=== PATIENT | female | born 1950 | race Caucasian/White ===

== ENCOUNTER 2020-11-01 11:23 | Inpatient (IN) ==
--- NOTE | 2020-11-01 12:19 | ERNOTE ---
Date of Service: 11/01/20 Time Seen by Provider: 11/01/20 12:06 Stated Complaint: covid symptoms Presenting Symptoms:: cough Source: patient Exam Limitations: no limitations Immunizations: IMMUNIZATION HX Immunizations Up to Date Yes History of Influenza Vaccine Yes Hx Pneumococcal Vaccination No Allergies/Adverse Reactions: Allergies Tetanus Vaccines and Toxoid [Tetanus] Allergy (Intermediate, Verified 04/04/20 10:58) SWELLING venlafaxine Allergy (Verified 04/04/20 10:58) moxifloxacin HCl [From Avelox] Adverse Reaction (Mild, Verified 04/04/20 10:58) RASH Home Medications: HOME MEDICATIONS Aspirin [Aspirin Chewable] 81 mg PO BID 03/19/16 [Last Taken 03/21/16] Deng Cit/Mag/D3/Zn/Breakfast Hostess/Jhon/Bor [Citracal-Vit D + Magnesium Tab] 1 ea PO DAILY 03/19/16 [Last Taken Unknown] Cyanocobalamin [Vitamin B-12] 1,000 mcg PO DAILY 03/19/16 [Last Taken Unknown] Flecainide Acetate [Tambocor] 100 mg PO BID 03/19/16 [Last Taken 03/28/16 05:30] Melatonin/Pyridoxine HCl (B6) [Melatonin 1 mg Tablet] 1 ea PO HS 03/19/16 [Last Taken Unknown] Multivit with Calcium,Iron,Min [Women's Daily Formula] 1 ea PO DAILY 03/19/16 [Last Taken Unknown] [place]-3 Fatty Acids [Fish Oil] 300 mg PO DAILY 03/19/16 [Last Taken Unknown] Polyethylene Glycol 3350 [Miralax] 17 gm PO DAILY 03/19/16 [Last Taken Unknown] anastrozole 1 mg tablet 1 mg PO DAILY 05/07/18 [Last Taken Unknown] cinnamon bark 500 mg capsule 2,000 mg PO cap 12/02/18 [Last Taken Unknown] turmeric 400 mg capsule 400 mg PO DAILY cap 12/02/18 [Last Taken Unknown] omeprazole 40 mg capsule,delayed release 40 mg PO DAILY #90 cap 09/26/19 [Last Taken Unknown] metoprolol tartrate 100 mg tablet 100 mg PO BID #60 tab 07/20/20 [Last Taken Unknown] potassium chloride 10 mEq tablet,extended release 10 meq PO DAILY #30 tab 07/25/20 [Last Taken Unknown] hydrochlorothiazide 25 mg tablet See Rx Instructions .ROUTE .COMPLEX #90 tablet 10/31/20 [Last Taken Unknown] - History of Present Ilness Narrative: Patient is a 70-year-old female with a history of hypertension, atrial fibrillation presenting with cough, chills, muscle aches and pains and shortness of breath since 10/24. Her had similar symptoms just before her onset of symptoms. She noted persistent symptoms since then. No fevers. Denies any abdominal pain, nausea, vomiting or diarrhea. She has been taking her temperature daily, but denies any fevers. Review of Systems - Review of Systems Constitutional: Present: fever, chills EYE: Present: no symptoms reported ENT: Present: no symptoms reported Respiratory: Present: shortness of breath, cough Cardiology: Present: no symptoms reported Gastrointestinal/Abdominal: Present: no symptoms reported Genitourinary: Present: no symptoms reported Musculoskeletal: Present: muscle pain, joint pain Skin: Present: no symptoms reported Neurological: Present: no symptoms reported Endocrine: Present: no symptoms reported Hematologic/Lymphatic: Present: no symptoms reported Psych: Present: no symptoms reported All Other Systems: All systems neg except as marked Medical History (Last Reviewed 04/04/20 @ 10:58 by Esme Schmid LPN) Wrist fracture (Chronic) Onset Date: Unknown SVT (supraventricular tachycardia) (Chronic) Onset Date: Unknown Sic Sinus Syndrome Seizures (Chronic) Onset Date: Unknown Pneumonia (Chronic) Onset Date: Unknown Plantar fasciitis (Chronic) Onset Date: ~2006 Migraine (Chronic) Onset Date: Unknown Kidney stone (Chronic) Onset Date: Unknown Hyperlipidemia (Chronic) Onset Date: Unknown Epilepsy (Chronic) Onset Date: Unknown Depression (Chronic) Onset Date: Unknown Bicornuate uterus (Chronic) Onset Date: Unknown 2 uterus, 2 cervix, and 3 kidneys Asthma (Chronic) Onset Date: Unknown Anxiety (Chronic) Onset Date: Unknown Surgical History: Surgical History (Last Reviewed 04/04/20 @ 10:58 by Esme Schmid LPN) History of permanent cardiac pacemaker placement (Chronic) Onset Date: ~01/22/10 Dr. Matt Harrison [place] H/O myringotomy (Resolved) Onset Date: ~2005 Removed 11/2007 Dr. Cain History of lumpectomy of right breast (Resolved) Onset Date: ~06/24/05 Dr. Brambila with wire localization Kidney stones (Resolved) Onset Date: ~1996 Removal H/O: hysterectomy (Resolved) Onset Date: ~1979 Dr. Mccoy - Was born with 2 uterus, 2 cervix, 2 vagina, 3 kidneys Hemorrhoids (Resolved) Onset Date: ~1990 Dr. Boyd H/O colonoscopy (Resolved) Onset Date: ~05/200510/27/12. ' Dr. Travis. Bgan - Hyperplastic polyp. Recheck in 10 years. Carpal tunnel syndrome (Resolved) Onset Date: ~198903/28/16. Right. [place] - Left H/O breast biopsy (Resolved) Onset Date: ~07/31/16 Steriotactic bx-infiltrating lobular carcinoma H/O coronary angiogram (Resolved) Onset Date: ~2002 Nav[place]ot Family History: Family History (Last Reviewed 04/04/20 @ 10:58 by Esme Schmid LPN) Father , age 88 Cancer Prostate Mother , age 79 Cancer Breast Heart disease Social History: (Last Updated 04/04/20 @ 14:31 by Mark Hunt MD) Social History: adopted: No Marital status: lives independently: Yes household members: spouse current occupational status: retired current occupation: retired Highest level of school completed/degree received: high school graduate Service: No Tobacco: Smoking Status: Former smoker Alcohol: alcohol intake: current alcohol intake frequency: a few times a month Substance Use: substance use type: does not use Dietary Habits: caffeine: Yes Type: carbonated beverages Physical Exam - Physical Exam General Appearance: Present: wd/wn, alert, other - Mild conversational dyspnea Neck: Present: supple, full range of motion Respiratory: Present: no respiratory distress, normal breath sounds, no accessory muscle use, lungs clear Cardiovascular/Chest: Present: regular rate, rhythm, no murmur, normal peripheral pulses Gastrointestinal/Abdominal: Present: nontender, nondistended, soft Back Exam: Present: normal range of motion Extremity Exam: Present: normal range of motion, no edema Neurological Exam: Present: alert, oriented, no motor/sensory deficits Skin Exam: Present: normal color, warm/dry Progress - Results and Orders Patient's Lab Results:: I have reviewed the patient's lab results. Results and Orders: Laboratory Tests 11/01/20 11/01/20 11/01/20 12:25 12:25 12:25 WBC 7.1 Hgb 13.2 Hct 38.1 Plt Count 109 L D-Dimer Sodium 139 Potassium 2.8 L Chloride 100 Carbon Dioxide 28.2 Anion Gap 13.6 BUN 18 Creatinine 0.88 Est GFR (Non-Af Amer) 68 Random Glucose 122 H Lactic Acid, Venous Calcium 8.9 Total Bilirubin 0.9 AST 39 ALT 56 Alkaline Phosphatase 83 Troponin I Less than 0.017 B-Natriuretic Peptide 535 H Total Protein 7.7 Albumin 3.9 Procalcitonin Less than 0.05 L SARS-CoV-2 (PCR) 11/01/20 11/01/20 11/01/20 12:25 12:25 12:34 WBC Hgb Hct Plt Count D-Dimer 0.80 H Sodium Potassium Chloride Carbon Dioxide Anion Gap BUN Creatinine Est GFR (Non-Af Amer) Random Glucose Lactic Acid, Venous 1.6 Calcium Total Bilirubin AST ALT Alkaline Phosphatase Troponin I B-Natriuretic Peptide Total Protein Albumin Procalcitonin SARS-CoV-2 (PCR) Detected H - Vital Signs Patient's Vital Signs:: I have reviewed the patient's vital signs. Vital Signs: Vital Signs 11/01/20 11:35 11/01/20 12:13 Temperature 36.8 C Pulse Rate 80 Respiratory Rate 21 H Blood Pressure 133/76 O2 Sat by Pulse Oximetry 88 L 95 - EKG EKG #1 EKG read: Interp. by me EKG Comments: Atrially paced complexes, rate of 70 bpm, voltage criteria for LVH met. Persistent diffuse T wave abnormalities without ST changes. Compared to prior EKG from 09/04/2016, anterior and lateral T wave abnormalities are worsened. - X-Ray X-Ray #1 X-Ray: chest Interpretation: Reviewed by me X-ray Comments: Findings: Interval placement of a single lead cardiac pacer. New multifocal patchy airspace consolidation seen bilaterally consistent with multifocal pneumonia. No pleural effusion or pneumothorax. Cardiac silhouette and pulmonary vasculature are normal. The osseous structures demonstrate degenerative changes of the spine and shoulders. IMPRESSION: BILATERAL MULTIFOCAL AIRSPACE CONSOLIDATION SUGGESTING MULTIFOCAL PNEUMONIA. - CT/Ultrasound CT/Ultrasound Narrative: CTA chest for PE Findings: Single lead cardiac pacer. There is adequate opacification of the pulmonary arterial system. No intraluminal filling defects to suggest pulmonary embolism. The aorta shows diffuse atherosclerosis but normal caliber and course without aneurysmal dilation or evidence for dissection. There is diffuse multifocal extensive patchy groundglass airspace opacities seen bilaterally consistent with Covid pneumonia. No pleural effusion or pneumothorax. Scattered calcified granulomas and chronic scarring. No mediastinal or hilar lymphadenopathy. The osseous structures demonstrate degenerative changes spine and shoulders. IMPRESSION: 1. NO EVIDENCE FOR PULMONARY EMBOLISM. 2. DIFFUSE MULTIFOCAL BILATERAL PATCHY GROUNDGLASS OPACITIES CONSISTENT WITH COVID PNEUMONIA. - Progress/Reassessment Chief Complaint: Upper Respiratory Symptoms Plan - Plan Plan: Patient is a 70-year-old female presenting with 10 days of chills, shortness of breath, cough, myalgias and arthralgias. Highly concerning for COVID-19. She is hypoxic to 88% on room air and tachypneic. Placed on 2 L nasal cannula. Also considered bacterial pneumonia, PE as potential etiologies. EKG does not show any ischemic changes. Labs show no leukocytosis, mild thrombocytopenia noted. Potassium low at 2.8, repleted IV and orally. D-dimer mildly elevated at 0.8. Chest x-ray shows bilateral infiltrates concerning for COVID-19. Procalcitonin within normal limits. Troponin normal. Will obtain CT chest for PE. Her COVID-19 swab is positive, given 6 mg of oral Decadron. CTA personally reviewed, demonstrates diffuse pulmonary infiltrates consistent with COVID-[address]. [address] Hunt is not available, patient admitted to Dr. Cowart for further care. Departure Clinical Impression: COVID-19, Hypoxia - Departure Disposition: Still a patient Condition: Serious
[2020-11-01 12:36] LABS: Hematocrit 38.1 % (37.0-47.0); Hemoglobin 13.2 gm/dL (12.5-16.0); Mean Cell Volume 93.2 fl (78-100); Mean Corpuscular Hemoglobin 32.3 pg (27-31); Mean Corpuscular Hgb Conc 34.6 g/dl (32-36); Mean Platelet Volume 10.9 fl (8-12.5); Platelet Count 109 K/mm3 (150-450); Red Blood Count 4.09 M/mm3 (4.2-5.4); Red Cell Distribution Width 10.9 % (11.5-14.0); White Blood Count 7.1 K/mm3 (4.0-10.5)
[2020-11-01 12:52] LABS: Troponin I Less than 0.017 ng/mL (0.00-0.10)
[2020-11-01 13:00] LABS: ALT 56 U/L (19-67); AST 39 U/L (0-48); Albumin * 3.9 gm/dl (3.4-5.0); Alkaline Phosphatase * 83 U/L (50-170); Anion Gap 13.6 mmol/L (6.8-13.8); BNP * 535 pg/mL (5-325); BUN/Creatinine Ratio 20.5 (9.0-21.6); Bilirubin, Total 0.9 mg/dL (0.0-1.1); Blood Urea Nitrogen 18 mg/dL (3-23); Ca. Corrected For Albumin 8.7 mg/dL (8.4-10.2); Calcium * 8.9 mg/dL (7.9-10.9); Carbon Dioxide 28.2 mmol/L (24-32.6); Chloride 100 mmol/L (97-106); Glucose * 122 mg/dL (70-110); Potassium 2.8 mmol/L (3.4-4.6); Sodium 139 mmol/L (132-142); Total Protein 7.7 gm/dL (6.2-8.2)
[2020-11-01 13:01] LABS: Total Cells Counted 100
[2020-11-01 13:06] LABS: Atypical (Reactive) Lymph 1 % (0-2); Lymphocyte 18 % (20-51); Monocyte 41 % (0-9); Neutrophil 40 % (42-75); Neutrophil # 2.8 K/mm3 (1.3-6.0)
[2020-11-01 13:07] LABS: Platelet Estimate Normal (NORMAL); RBC Morphology Normal (NORMAL)
[2020-11-01] MEDS ORDERED: ACETAMINOPHEN 325 MG TABLET PO ONE (13:21)
[2020-11-01] MEDS ORDERED: POTASSIUM CHLORIDE IN WATER 100 ML IV ONE (13:35)
[2020-11-01] MEDS ORDERED: POTASSIUM CHLORIDE 20 MEQ TABLET.SA PO ONE (13:35)
[2020-11-01] MEDS ORDERED: NORMAL SALINE 1,000 ML IV PRN (13:57)
[2020-11-01] MEDS ORDERED: DEXAMETHASONE 4 MG TABLET PO ONE (14:17)
--- NOTE | 2020-11-01 15:25 | HP ---
Chief Complaint - Chief Complaint Date of Service: 11/01/20 Time of Service: 14:45 Chief Complaint: Not feeling well x1 week History of Present Illness: 70-year-old female with a past medical history of anxiety, depression, hyperlipidemia, migraines, seizures, SVT presents from home with complaints of malaise and cold-like symptoms. Her symptoms began on October 22, 2019. Associated symptoms included dry cough, body aches, shortness of breath and poor appetite. Her symptoms progressively worsened and she decided to come to the emergency room. Her also had similar symptoms but his were milder. In the ER she was found to be positive for COVID-19. Vital signs showed a fever of 38.1, hypoxia at 88% on room air. She responded well with 2 L of oxygen via nasal cannula and her oxygen improved to 95%. Blood work is positive for potassium of 2.8 and D-dimer of 0.8. Chest x-ray is positive for multifocal airspace consolidation suggesting multifocal pneumonia. CT angio showed no evidence for pulmonary embolism, diffuse multifocal bilateral patchy groundglass opacities with Covid pneumonia. In the ER she received a dose of dexamethasone 6 mg, 50 mEq of potassium and IV fluids. She is being admitted for further evaluation and management of Covid-19 pneumonia. Medical History (Last Reviewed 04/04/20 @ 10:58 by Esme Schmid LPN) Wrist fracture (Chronic) Onset Date: Unknown SVT (supraventricular tachycardia) (Chronic) Onset Date: Unknown Sic Sinus Syndrome Seizures (Chronic) Onset Date: Unknown Pneumonia (Chronic) Onset Date: Unknown Plantar fasciitis (Chronic) Onset Date: ~2006 Migraine (Chronic) Onset Date: Unknown Kidney stone (Chronic) Onset Date: Unknown Hyperlipidemia (Chronic) Onset Date: Unknown Epilepsy (Chronic) Onset Date: Unknown Depression (Chronic) Onset Date: Unknown Bicornuate uterus (Chronic) Onset Date: Unknown 2 uterus, 2 cervix, and 3 kidneys Asthma (Chronic) Onset Date: Unknown Anxiety (Chronic) Onset Date: Unknown Surgical History: Surgical History (Last Reviewed 04/04/20 @ 10:58 by Esme Schmid LPN) History of permanent cardiac pacemaker placement (Chronic) Onset Date: ~01/22/10 Dr. Matt Harrison [place] H/O myringotomy (Resolved) Onset Date: ~2005 Removed 11/2007 Dr. Cain History of lumpectomy of right breast (Resolved) Onset Date: ~06/24/05 Dr. Brambila with wire localization Kidney stones (Resolved) Onset Date: ~1996 Removal H/O: hysterectomy (Resolved) Onset Date: ~1979 Dr. Mccoy - Was born with 2 uterus, 2 cervix, 2 vagina, 3 kidneys Hemorrhoids (Resolved) Onset Date: ~1990 Dr. Boyd H/O colonoscopy (Resolved) Onset Date: ~05/200510/27/12. ' Dr. Travis. Bgan - Hyperplastic polyp. Recheck in 10 years. Carpal tunnel syndrome (Resolved) Onset Date: ~198903/28/16. Right. [place] - Left H/O breast biopsy (Resolved) Onset Date: ~07/31/16 Steriotactic bx-infiltrating lobular carcinoma H/O coronary angiogram (Resolved) Onset Date: ~2002 [place] Family History: Family History (Last Reviewed 04/04/20 @ 10:58 by Esme Schmid LPN) Father , age 88 Cancer Prostate Mother , age 79 Cancer Breast Heart disease Social History: (Last Updated 04/04/20 @ 14:31 by Mark Hunt MD) Social History: adopted: No Marital status: lives independently: Yes household members: spouse current occupational status: retired current occupation: retired Highest level of school completed/degree received: high school graduate Service: No Tobacco: Smoking Status: Former smoker Alcohol: alcohol intake: current alcohol intake frequency: a few times a month Substance Use: substance use type: does not use Dietary Habits: caffeine: Yes Type: carbonated beverages Review Of Systems (GEN) - Review of Systems Generalized/Overall Review: Present: Fever EENTM: Present: Throat Pain Respiratory: Present: Cough, Shortness of Breath Cardiac: Absent: Chest Pain Abdominal: Absent: Abdominal Pain Musculoskeletal: Present: Muscle Pain Misc: All systems neg except as marked Immunizations: IMMUNIZATION HX Immunizations Up to Date Yes History of Influenza Vaccine Yes Hx Pneumococcal Vaccination No Allergies/Adverse Reactions: Allergies Allergy/AdvReac Type Severity Reaction Status Date / Time Tetanus Vaccines and Toxoid Allergy Intermediate SWELLING Verified 04/04/20 10:58 [Tetanus] venlafaxine Allergy Verified 04/04/20 10:58 moxifloxacin HCl AdvReac Mild RASH Verified 04/04/20 10:58 [From Avelox] Home Medications: HOME MEDICATIONS Aspirin [Aspirin Chewable] 81 mg PO BID 03/19/16 [Last Taken 03/21/16] Deng Cit/Mag/D3/Zn/Senior Office Assistant/Jhon/Bor [Citracal-Vit D + Magnesium Tab] 1 ea PO DAILY 03/19/16 [Last Taken Unknown] Cyanocobalamin [Vitamin B-12] 1,000 mcg PO DAILY 03/19/16 [Last Taken Unknown] Flecainide Acetate [Tambocor] 100 mg PO BID 03/19/16 [Last Taken 03/28/16 05:30] Melatonin/Pyridoxine HCl (B6) [Melatonin 1 mg Tablet] 1 ea PO HS 03/19/16 [Last Taken Unknown] Multivit with Calcium,Iron,Min [Women's Daily Formula] 1 ea PO DAILY 03/19/16 [Last Taken Unknown] [place]-3 Fatty Acids [Fish Oil] 300 mg PO DAILY 03/19/16 [Last Taken Unknown] Polyethylene Glycol 3350 [Miralax] 17 gm PO DAILY 03/19/16 [Last Taken Unknown] anastrozole 1 mg tablet 1 mg PO DAILY 05/07/18 [Last Taken Unknown] cinnamon bark 500 mg capsule 2,000 mg PO cap 12/02/18 [Last Taken Unknown] turmeric 400 mg capsule 400 mg PO DAILY cap 12/02/18 [Last Taken Unknown] omeprazole 40 mg capsule,delayed release 40 mg PO DAILY #90 cap 09/26/19 [Last Taken Unknown] metoprolol tartrate 100 mg tablet 100 mg PO BID #60 tab 07/20/20 [Last Taken Unknown] potassium chloride 10 mEq tablet,extended release 10 meq PO DAILY #30 tab 07/25/20 [Last Taken Unknown] hydrochlorothiazide 25 mg tablet See Rx Instructions .ROUTE .COMPLEX #90 tablet 10/31/20 [Last Taken Unknown] Exam - Exam Vital Signs: Vital Signs - Last Taken Temp 37.2 C 11/01/20 14:53 Pulse 70 11/01/20 14:53 Resp 19 11/01/20 14:53 BP 129/75 11/01/20 14:53 Pulse Ox 95 11/01/20 14:53 Constitutional: Present: Alert, Cooperative, Well developed, Well nourished, Elderly ENT Exam: Present: hearing grossly normal, moist mucous membranes Eye Exam: bilateral eye: normal inspection, PERRL, EOMI Neck: Present: non-tender, supple. Absent: lymphadenopathy (R), lymphadenopathy (L) Back Exam: Present: normal inspection, no CVA tenderness, no vertebral tenderness Respiratory: Present: lungs clear, no respiratory distress, no accessory muscle use, No wheezing. Absent: crackles, rhonchi Cardiovascular/Chest: Present: normal peripheral pulses, regular rate, rhythm, no edema, no murmur Peripheral Pulses: dorsalis-pedis (R): 1+, dorsalis-pedis (L): 1+ Abdomen: Present: Normal bowel sounds, soft, nontender Extremity: Present: no pedal edema Skin Exam: Present: normal color, warm/dry Neurologic: Present: alert, normal mood/affect Appearance: Present: appropriate appearance, appropriate insight Eye contact: Present: cooperative, good eye contact Thoughts: Present: normal thought pattern, normal mood /affect Diagnostic Studies: Abnormal Lab Results 11/01/20 11/01/20 11/01/20 Range/Units 12:25 12:25 12:25 RBC 4.09 L (4.2-5.4) M/mm3 MCH 32.3 H (27-31) pg RDW 10.9 L (11.5-14.0) % Plt Count 109 L (150-450) K/mm3 Neutrophils % (Manual) 40 L (42-75) % Lymphocytes % (Manual) 18 L (20-51) % Monocytes % (Manual) 41 H (0-9) % Lymphocytes # (Manual) 1.3 L (1.5-3.5) k/mm3 Monocytes # (Manual) 2.9 H (0.0-1.0) k/mm3 D-Dimer (0.19-0.49) ug/mL Potassium 2.8 L (3.4-4.6) mmol/L Random Glucose 122 H (70-110) mg/dL B-Natriuretic Peptide 535 H (5-325) pg/mL Procalcitonin Less than 0.05 L (0.05-0.50) ng/mL SARS-CoV-2 (PCR) (NotDetected) 11/01/20 11/01/20 Range/Units 12:25 12:34 RBC (4.2-5.4) M/mm3 MCH (27-31) pg RDW (11.5-14.0) % Plt Count (150-450) K/mm3 Neutrophils % (Manual) (42-75) % Lymphocytes % (Manual) (20-51) % Monocytes % (Manual) (0-9) % Lymphocytes # (Manual) (1.5-3.5) k/mm3 Monocytes # (Manual) (0.0-1.0) k/mm3 D-Dimer 0.80 H (0.19-0.49) ug/mL Potassium (3.4-4.6) mmol/L Random Glucose (70-110) mg/dL B-Natriuretic Peptide (5-325) pg/mL Procalcitonin (0.05-0.50) ng/mL SARS-CoV-2 (PCR) Detected H (NotDetected) Laboratory Results WBC 7.1 K/mm3 (4.0-10.5) 11/01/20 12:25 RBC 4.09 M/mm3 (4.2-5.4) L 11/01/20 12:25 Hgb 13.2 gm/dL (12.5-16.0) 11/01/20 12:25 Hct 38.1 % (37.0-47.0) 11/01/20 12:25 MCV 93.2 fl (78-100) 11/01/20 12:25 MCH 32.3 pg (27-31) H 11/01/20 12:25 MCHC 34.6 g/dl (32-36) 11/01/20 12:25 RDW 10.9 % (11.5-14.0) L 11/01/20 12:25 Plt Count 109 K/mm3 (150-450) L 11/01/20 12:25 MPV 10.9 fl (8-12.5) 11/01/20 12:25 Neutrophils % (Manual) 40 % (42-75) L 11/01/20 12:25 Lymphocytes % (Manual) 18 % (20-51) L 11/01/20 12:25 Monocytes % (Manual) 41 % (0-9) H 11/01/20 12:25 Neutrophils # (Manual) 2.8 K/mm3 (1.3-6.0) 11/01/20 12:25 Lymphocytes # (Manual) 1.3 k/mm3 (1.5-3.5) L 11/01/20 12:25 Monocytes # (Manual) 2.9 k/mm3 (0.0-1.0) H 11/01/20 12:25 Atypic/Reactive Lymphs 1 % (0-2) 11/01/20 12:25 Platelet Estimate Normal (NORMAL) 11/01/20 12:25 RBC Morphology Normal (NORMAL) 11/01/20 12:25 D-Dimer 0.80 ug/mL (0.19-0.49) H 11/01/20 12:25 Sodium 139 mmol/L (132-142) 11/01/20 12:25 Plasma Sodium 139 mmol/L (130-142) 11/01/20 12:25 Potassium 2.8 mmol/L (3.4-4.6) L 11/01/20 12:25 Chloride 100 mmol/L (97-106) 11/01/20 12:25 Carbon Dioxide 28.2 mmol/L (24-32.6) 11/01/20 12:25 Anion Gap 13.6 mmol/L (6.8-13.8) 11/01/20 12:25 BUN 18 mg/dL (3-23) 11/01/20 12:25 Creatinine 0.88 mg/dL (0.4-1.4) 11/01/20 12:25 Est GFR (Non-Af Amer) 68 mL/min (60-130) 11/01/20 12:25 BUN/Creatinine Ratio 20.5 (9.0-21.6) 11/01/20 12:25 Random Glucose 122 mg/dL (70-110) H 11/01/20 12:25 Lactic Acid, Venous 1.6 mmol/L (0.4-2.0) 11/01/20 12:25 Calcium 8.9 mg/dL (7.9-10.9) 11/01/20 12:25 Calcium Adj for Albumin 8.7 mg/dL (8.4-10.2) 11/01/20 12:25 Total Bilirubin 0.9 mg/dL (0.0-1.1) 11/01/20 12:25 AST 39 U/L (0-48) 11/01/20 12:25 ALT 56 U/L (19-67) 11/01/20 12:25 Alkaline Phosphatase 83 U/L (50-170) 11/01/20 12:25 Troponin I Less than 0.017 ng/mL (0.00-0.10) 11/01/20 12:25 B-Natriuretic Peptide 535 pg/mL (5-325) H 11/01/20 12:25 Total Protein 7.7 gm/dL (6.2-8.2) 11/01/20 12:25 Albumin 3.9 gm/dl (3.4-5.0) 11/01/20 12:25 Procalcitonin Less than 0.05 ng/mL (0.05-0.50) L 11/01/20 12:25 SARS-CoV-2 (PCR) Detected (NotDetected) H 11/01/20 12:34 Assessment/Plan - Narrative Narrative: 70-year-old female with a past medical history of anxiety, depression, hyperlipidemia, migraines, seizures, SVT presents from home with complaints of malaise and cold-like symptoms. Her symptoms began on October 22, 2019. Associated symptoms included dry cough, body aches, shortness of breath and poor appetite. Her symptoms progressively worsened and she decided to come to the emergency room. Her also had similar symptoms but his were milder. In the ER she was found to be positive for COVID-19. Vital signs showed a fever of 38.1, hypoxia at 88% on room air. She responded well with 2 L of oxygen via nasal cannula and her oxygen improved to 95%. Blood work is positive for potassium of 2.8 and D-dimer of 0.8. Chest x-ray is positive for multifocal airspace consolidation suggesting multifocal pneumonia. CT angio showed no evidence for pulmonary embolism, diffuse multifocal bilateral patchy groundglass opacities with Covid pneumonia. In the ER she received a dose of dexamethasone 6 mg, 50 mEq of potassium and IV fluids. She is being admitted for further ev aluation and management of Covid-19 pneumonia. Plan #1 continue with oxygen supplementation as needed. Taper to baseline oxygen as tolerated. #2 continue with dexamethasone 6 mg daily #3 Lovenox for DVT prophylaxis #4 CMP and CBC in the morning #5 resume home medications for comorbidities - Assessment/Plan (1) Pneumonia due to COVID-19 virus Problem: Acute (2) Acute respiratory failure with hypoxia Problem: Acute (3) Hyperlipidemia Problem: Chronic Qualifiers: (4) Depression Problem: Chronic (5) Anxiety Problem: Chronic (6) SVT (supraventricular tachycardia) Problem: Chronic (7) Seizures Problem: Acute (8) Migraine Problem: Chronic (9) Fever Problem: Acute
[2020-11-01] MEDS ORDERED: ACETAMINOPHEN 325 MG TABLET PO PRN (17:38)
[2020-11-01] MEDS: ANASTROZOLE 1 MG TABLET PO SCH (20:42)
[2020-11-01] MEDS: ASPIRIN 81 MG TAB.CHEW PO SCH (20:42)
[2020-11-01] MEDS: METOPROLOL TARTRATE 100 MG TABLET PO SCH (20:42)
[2020-11-01] MEDS: FLECAINIDE ACETATE 100 MG TABLET PO SCH (20:42)
[2020-11-01] MEDS: MELATONIN 3,000 MCG TABLET PO SCH (20:43)
[2020-11-01] MEDS: POLYETHYLENE GLYCOL 3350 17 GM PACKET PO SCH (20:44)
[2020-11-02] MEDS: PANTOPRAZOLE SODIUM 40 MG TABLET.EC PO SCH (06:22)
[2020-11-02 06:47] LABS: Hemoglobin 12.9 gm/dL (12.5-16.0); Mean Cell Volume 94.4 fl (78-100); Mean Corpuscular Hemoglobin 32.9 pg (27-31); Mean Corpuscular Hgb Conc 34.9 g/dl (32-36); Mean Platelet Volume 10.8 fl (8-12.5); Platelet Count 116 K/mm3 (150-450); Red Blood Count 3.92 M/mm3 (4.2-5.4); Red Cell Distribution Width 10.9 % (11.5-14.0); White Blood Count 6.9 K/mm3 (4.0-10.5)
[2020-11-02 06:53] LABS: Albumin * 3.5 gm/dl (3.4-5.0); Anion Gap 12.6 mmol/L (6.8-13.8); BUN/Creatinine Ratio 23.9 (9.0-21.6); Bilirubin, Total 0.6 mg/dL (0.0-1.1); Ca. Corrected For Albumin 9.1 mg/dL (8.4-10.2); Potassium 3.6 mmol/L (3.4-4.6); Total Protein 7.3 gm/dL (6.2-8.2)
[2020-11-02 06:54] LABS: Total Cells Counted 100
[2020-11-02 07:27] LABS: Band 4 % (0-2.0); Immature Granulocyte 3 (0-1); Lymphocyte 16 % (20-51); Monocyte 27 % (0-9); Neutrophil 50 % (42-75); Neutrophil # 3.5 K/mm3 (1.3-6.0); Platelet Estimate Normal (NORMAL); RBC Morphology Normal (NORMAL)
[2020-11-02] MEDS ORDERED: REMDESIVIR 200 MG in NORMAL SALINE 210 ML IV ONE (09:20)
[2020-11-02] MEDS: DEXAMETHASONE 2 MG TABLET PO SCH (09:24)
[2020-11-02] MEDS: METOPROLOL TARTRATE 100 MG TABLET PO SCH ×2 (09:25→20:37)
[2020-11-02] MEDS: HYDROCHLOROTHIAZIDE 25 MG TABLET PO SCH (09:25)
[2020-11-02] MEDS: ASPIRIN 81 MG TAB.CHEW PO SCH ×2 (09:25→20:38)
[2020-11-02] MEDS: POTASSIUM CHLORIDE 10 MEQ TABLET.SA PO SCH (09:25)
[2020-11-02] MEDS: FLECAINIDE ACETATE 100 MG TABLET PO SCH ×2 (09:25→20:38)
--- NOTE | 2020-11-02 09:35 | PN ---
Subjective - Date and Time Seen Date: 11/02/20 Time: 08:25 Subjective Narrative: She continues to feel weak and has shortness of breath with exertion. She has a nonproductive cough. Chest discomfort with coughing. She is tolerating her diet. Objective - Review of Systems Generalized/Overall Review: Denies: Fever Respiratory: Reports: Cough, Shortness of Breath Cardiac: Denies: Chest Pain Abdominal: Denies: Abdominal Pain Misc: All systems neg except as marked - Vitals Vitals: Last Vital Signs Temp 36.1 C 11/02/20 06:21 Pulse 72 11/02/20 06:21 Resp 20 11/02/20 06:21 BP 132/73 11/02/20 06:21 Pulse Ox 93 11/02/20 06:42 - Abnormal Lab Findings Abnormal Lab Findings: Abnormal Lab Results 11/01/20 11/01/20 11/01/20 Range/Units 12:25 12:25 12:25 RBC 4.09 L (4.2-5.4) M/mm3 MCH 32.3 H (27-31) pg RDW 10.9 L (11.5-14.0) % Plt Count 109 L (150-450) K/mm3 Neutrophils % (Manual) 40 L (42-75) % Band Neuts % (Manual) (0-2.0) % Lymphocytes % (Manual) 18 L (20-51) % Monocytes % (Manual) 41 H (0-9) % Immature Granulocytes (0-1) Lymphocytes # (Manual) 1.3 L (1.5-3.5) k/mm3 Monocytes # (Manual) 2.9 H (0.0-1.0) k/mm3 D-Dimer (0.19-0.49) ug/mL Sodium (132-142) mmol/L Plasma Sodium (130-142) mmol/L Potassium 2.8 L (3.4-4.6) mmol/L BUN/Creatinine Ratio (9.0-21.6) Random Glucose 122 H (70-110) mg/dL B-Natriuretic Peptide 535 H (5-325) pg/mL Procalcitonin Less than 0.05 L (0.05-0.50) ng/mL SARS-CoV-2 (PCR) (NotDetected) 11/01/20 11/01/20 11/02/20 Range/Units 12:25 12:34 06:33 RBC 3.92 L (4.2-5.4) M/mm3 MCH 32.9 H (27-31) pg RDW 10.9 L (11.5-14.0) % Plt Count 116 L (150-450) K/mm3 Neutrophils % (Manual) (42-75) % Band Neuts % (Manual) 4 H (0-2.0) % Lymphocytes % (Manual) 16 L (20-51) % Monocytes % (Manual) 27 H (0-9) % Immature Granulocytes 3 H (0-1) Lymphocytes # (Manual) 1.1 L (1.5-3.5) k/mm3 Monocytes # (Manual) 1.9 H (0.0-1.0) k/mm3 D-Dimer 0.80 H (0.19-0.49) ug/mL Sodium (132-142) mmol/L Plasma Sodium (130-142) mmol/L Potassium (3.4-4.6) mmol/L BUN/Creatinine Ratio (9.0-21.6) Random Glucose (70-110) mg/dL B-Natriuretic Peptide (5-325) pg/mL Procalcitonin (0.05-0.50) ng/mL SARS-CoV-2 (PCR) Detected H (NotDetected) 11/02/20 Range/Units 06:33 RBC (4.2-5.4) M/mm3 MCH (27-31) pg RDW (11.5-14.0) % Plt Count (150-450) K/mm3 Neutrophils % (Manual) (42-75) % Band Neuts % (Manual) (0-2.0) % Lymphocytes % (Manual) (20-51) % Monocytes % (Manual) (0-9) % Immature Granulocytes (0-1) Lymphocytes # (Manual) (1.5-3.5) k/mm3 Monocytes # (Manual) (0.0-1.0) k/mm3 D-Dimer (0.19-0.49) ug/mL Sodium 143 H (132-142) mmol/L Plasma Sodium 144 H (130-142) mmol/L Potassium (3.4-4.6) mmol/L BUN/Creatinine Ratio 23.9 H (9.0-21.6) Random Glucose 152 H (70-110) mg/dL B-Natriuretic Peptide (5-325) pg/mL Procalcitonin (0.05-0.50) ng/mL SARS-CoV-2 (PCR) (NotDetected) - Exam Constitutional: Present: Alert, Cooperative, Well developed, Well nourished, No distress, Elderly ENT Exam: Present: hearing grossly normal Neck: Present: non-tender, supple. Absent: lymphadenopathy (R), lymphadenopathy (L) Respiratory: Present: lungs clear, no respiratory distress, no accessory muscle use, No wheezing. Absent: rhonchi Cardiovascular/Chest: Present: normal peripheral pulses, regular rate, rhythm, no edema, no murmur Abdomen: Present: Normal bowel sounds, soft, nontender Extremity: Present: no pedal edema Skin Exam: Present: normal color, warm/dry Neurologic: Present: alert, normal mood/affect Appearance: Present: appropriate appearance, appropriate insight Eye contact: Present: cooperative, good eye contact Thoughts: Present: normal thought pattern, normal mood /affect Assessment/Plan Plan Narrative: 70-year-old female with a past medical history of anxiety, depression, hyperlipidemia, migraines, seizures, SVT presents from home with complaints of malaise and cold-like symptoms. Her symptoms began on October 24, 2019. Associated symptoms included dry cough, body aches, shortness of breath and poor appetite. Her symptoms progressively worsened and she decided to come to the emergency room. Her also had similar symptoms but his were milder. In the ER she was found to be positive for COVID-19. Vital signs showed a fever of 38.1, hypoxia at 88% on room air. She responded well with 2 L of oxygen via nasal cannula and her oxygen improved to 95%. Blood work is positive for potassium of 2.8 and D-dimer of 0.8. Chest x-ray is positive for multifocal airspace consolidation suggesting multifocal pneumonia. CT angio showed no evidence for pulmonary embolism, diffuse multifocal bilateral patchy groundglass opacities with Covid pneumonia. In the ER she received a dose of dexamethasone 6 mg, 50 mEq of potassium and IV fluids. She is being admitted for further evaluation and management of Covid-19 pneumonia. She continues to have shortness of breath with exertion. We will continue to try to taper her off of the oxygen as tolerated. Her potassium is normalized this morning. She is tolerating her diet. She will remain hospitalized. I will start her on remdesivir since her symptom onset was October 24, she is still in the 10-day window. Plan #1 continue with oxygen supplementation as needed. Taper to baseline oxygen as tolerated. #2 continue with dexamethasone 6 mg daily #3 Lovenox for DVT prophylaxis #4 CMP in the morning #5 resume home medications for comorbidities #6 start remdesivir day 1 #7 start incentive spirometer and cornet - Problems/Diagnosis (1) Pneumonia due to COVID-19 virus Problem: Acute (2) Acute respiratory failure with hypoxia Problem: Acute (3) Hyperlipidemia Problem: Chronic Qualifiers: (4) Depression Problem: Chronic (5) Anxiety Problem: Chronic (6) SVT (supraventricular tachycardia) Problem: Chronic (7) Seizures Problem: Acute (8) Migraine Problem: Chronic (9) Fever Problem: Acute (10) Hypokalemia Problem: Acute
[2020-11-02] MEDS: ENOXAPARIN SODIUM 40 MG/0.4 ML SYRG SC SCH (10:16)
[2020-11-02] MEDS: ANASTROZOLE 1 MG TABLET PO SCH (20:37)
[2020-11-02] MEDS: POLYETHYLENE GLYCOL 3350 17 GM PACKET PO SCH (20:38)
[2020-11-02] MEDS: MELATONIN 3,000 MCG TABLET PO SCH (20:38)
[2020-11-03 07:00] LABS: Albumin * 3.4 gm/dl (3.4-5.0); Anion Gap 13.5 mmol/L (6.8-13.8); Bilirubin, Total 0.6 mg/dL (0.0-1.1); Ca. Corrected For Albumin 8.9 mg/dL (8.4-10.2); Calcium * 8.7 mg/dL (7.9-10.9); Carbon Dioxide 28.1 mmol/L (24-32.6); Potassium 3.6 mmol/L (3.4-4.6); Total Protein 6.6 gm/dL (6.2-8.2)
[2020-11-03] MEDS: PANTOPRAZOLE SODIUM 40 MG TABLET.EC PO SCH (07:21)
[2020-11-03] MEDS: HYDROCHLOROTHIAZIDE 25 MG TABLET PO SCH (09:12)
[2020-11-03] MEDS: ASPIRIN 81 MG TAB.CHEW PO SCH (09:12)
[2020-11-03] MEDS: METOPROLOL TARTRATE 100 MG TABLET PO SCH (09:13)
[2020-11-03] MEDS: POTASSIUM CHLORIDE 10 MEQ TABLET.SA PO SCH (09:13)
[2020-11-03] MEDS: DEXAMETHASONE 2 MG TABLET PO SCH (09:13)
[2020-11-03] MEDS: FLECAINIDE ACETATE 100 MG TABLET PO SCH (09:14)
[2020-11-03] MEDS: ENOXAPARIN SODIUM 40 MG/0.4 ML SYRG SC SCH (09:14)
[2020-11-03] MEDS ORDERED: REMDESIVIR 100 MG in NORMAL SALINE 230 ML IV SCH (09:30)
--- NOTE | 2020-11-03 11:39 | DS ---
(1) Acute respiratory failure with hypoxia Problem: Resolved (2) COVID-19 Problem: Acute (3) Pneumonia due to COVID-19 virus Problem: Acute Date of Discharge:: 11/03/20 Hospital Course: Sidra is a 70 yo female admitted with acute respiratory failure secondary to Covid-19 pneumonia. She was started on dexamethasone PO and Veklury IV treatment. She was treated with oxygen supplementations to keep sats 90% or greater. She was given cornet and incentive spirometer. With treatment she improved and was weaned off oxygen. She has been off oxygen for nearly 24hours and has even slept overnight without oxygen. She has been up and moving around today without hypoxia. She has received her dose today of Veklury and is doing well enough to be discharged to home without oxygen. I will have her continue with Dexamethasone for the rest of the week. Procedures Performed: none Results and Findings: Pending Mircobiology Results 11/01/20 13:04 Blood Blood Culture - Preliminary NO GROWTH 24 HOURS 11/01/20 12:25 Blood Blood Culture - Preliminary NO GROWTH 24 HOURS Lab Pending Results 11/01/20 12:25: WBC 7.1, RBC 4.09 L, Hgb 13.2, Hct 38.1, MCV 93.2, MCH 32.3 H, MCHC 34.6, RDW 10.9 L, Plt Count 109 L, MPV 10.9, Neutrophils % (Manual) 40 L, Lymphocytes % (Manual) 18 L, Monocytes % (Manual) 41 H, Neutrophils # (Manual) 2.8, Lymphocytes # (Manual) 1.3 L, Monocytes # (Manual) 2.9 H, Atypic/Reactive Lymphs 1, Platelet Estimate Normal, RBC Morphology Normal 11/01/20 12:25: Sodium 139, Plasma Sodium 139, Potassium 2.8 L, Chloride 100, Carbon Dioxide 28.2, Anion Gap 13.6, BUN 18, Creatinine 0.88, Est GFR (Non-Af Amer) 68, BUN/Creatinine Ratio 20.5, Random Glucose 122 H, Calcium 8.9, Calcium Adj for Albumin 8.7, Total Bilirubin 0.9, AST 39, ALT 56, Alkaline Phosphatase 83, Troponin I Less than 0.017, B-Natriuretic Peptide 535 H, Total Protein 7.7, Albumin 3.9 11/01/20 12:25: Procalcitonin Less than 0.05 L 11/01/20 12:25: D-Dimer 0.80 H 11/01/20 12:25: Lactic Acid, Venous 1.6 11/01/20 12:34: SARS-CoV-2 (PCR) Detected H 11/02/20 06:33: WBC 6.9, RBC 3.92 L, Hgb 12.9, Hct 37.0, MCV 94.4, MCH 32.9 H, MCHC 34.9, RDW 10.9 L, Plt Count 116 L, MPV 10.8, Neutrophils % (Manual) 50, Band Neuts % (Manual) 4 H, Lymphocytes % (Manual) 16 L, Monocytes % (Manual) 27 H, Immature Granulocytes 3 H, Neutrophils # (Manual) 3.5, Lymphocytes # (Manual) 1.1 L, Monocytes # (Manual) 1.9 H, Platelet Estimate Normal, RBC Morphology Normal 11/02/20 06:33: Sodium 143 H, Plasma Sodium 144 H, Potassium 3.6 D, Chloride 103, Carbon Dioxide 31.0, Anion Gap 12.6, BUN 17, Creatinine 0.71, Est GFR (Non- Af Amer) 87 D, BUN/Creatinine Ratio 23.9 H, Random Glucose 152 H, Calcium 9.0, Calcium Adj for Albumin 9.1, Total Bilirubin 0.6, AST 33, ALT 52, Alkaline Phosphatase 76, Total Protein 7.3, Albumin 3.5 11/03/20 06:15: Sodium 143 H, Plasma Sodium 143 H, Potassium 3.6, Chloride 105, Carbon Dioxide 28.1, Anion Gap 13.5, BUN 20, Creatinine 0.80, Est GFR (Non-Af Amer) 76, BUN/Creatinine Ratio 25.0 H, Random Glucose 111 H, Calcium 8.7, Calcium Adj for Albumin 8.9, Total Bilirubin 0.6, AST 32, ALT 51, Alkaline Phosphatase 77, Total Protein 6.6, Albumin 3.4 Discharge Location: Home Disposition: Home self-care Condition: Good Discharge Activity: Activity as tolerated Discharge Diet: General/regular food Referrals: Mark Hunt MD [Primary Care Provider] - One Week (1 week video/phone visit) Problem Oriented Discharge Instructions to Patient/Family: COVID-19 Prescriptions (Any new or edited meds): Dexamethasone [Decadron] 6 mg PO DAILY #15 tab Transmission Status: Pending to [facility] Complete Home Medications List: Complete Home Medication List: Aspirin [Aspirin Chewable] 81 mg PO BID 03/19/16 Deng Cit/Mag/D3/Zn/Hydrator Operator/Jhon/Bor [Citracal-D3 Plus Magnesium Tab] 1 ea PO DAILY 03/19/16 Cyanocobalamin [Vitamin B-12] 1,000 mcg PO DAILY 03/19/16 Flecainide Acetate [Tambocor] 100 mg PO BID 03/19/16 Melatonin/Pyridoxine HCl (B6) [Melatonin 1 mg Tablet] 1 ea PO HS 03/19/16 Multivit with Calcium,Iron,Min [Women's Daily Formula] 1 ea PO DAILY 03/19/16 [place]-3 Fatty Acids [Fish Oil] 300 mg PO DAILY 03/19/16 Polyethylene Glycol 3350 [Miralax] 17 gm PO HS 03/19/16 anastrozole 1 mg tablet 1 mg PO HS 05/07/18 cinnamon bark 500 mg capsule 2,000 mg PO DAILY cap 12/02/18 turmeric 400 mg capsule 400 mg PO DAILY cap 12/02/18 omeprazole 40 mg capsule,delayed release 40 mg PO DAILY #90 cap 09/26/19 metoprolol tartrate 100 mg tablet 100 mg PO BID #60 tab 07/20/20 potassium chloride 10 mEq tablet,extended release 10 meq PO DAILY #30 tab 07/25/20 hydrochlorothiazide 25 mg tablet See Rx Instructions .ROUTE .COMPLEX #90 tablet 10/31/20 Psyllium Husk (with Sugar) [Metamucil] 1 ea PO DAILY 11/01/20 Acetaminophen [Tylenol] 650 mg PO Q4H PRN tablet 11/03/20 Dexamethasone [Decadron] 6 mg PO DAILY #15 tab 11/03/20
[2020-11-03 13:09] VITALS: BP 129/81
== END 2020-11-03 01:00 | disposition home or self-care (01) | DRG 177 ==
LOC: ER 11:23 → MS 14:40
PROVIDERS: ADMIT Internal Medicine; ATTEND Internal Medicine